=== PATIENT | male | born 1955 | race Caucasian/White ===

== ENCOUNTER 2022-08-09 10:14 | Emergency (ER) | payer MEDICARE ==
[~2022-08-09] VITALS: Ht 180.3 cm; Wt 81.4 kg
[2022-08-09 10:35] VITALS: BP 128/86
[2022-08-09] MEDS ORDERED: CHILD'S ASA81 MG PO (10:41)
[2022-08-09] MEDS ORDERED: KEFLEX500 MG PO ×2 (13:01→13:04)
[2022-08-09 13:07] VITALS: BP 128/86
== END 2022-08-09 13:13 | disposition home or self-care (01) ==
LOC: ED 10:14
PROC: 0HQGXZZ Repair Left Hand Skin, External Approach (ICD-10-PCS; principal; 2022-08-09)
DX: S61.215A Laceration without foreign body of left ring finger without damage to nail, initial encounter (principal); J44.9 Chronic obstructive pulmonary disease, unspecified; X58.XXXA Exposure to other specified factors, initial encounter